=== PATIENT | female | born 1980 ===

== ENCOUNTER 2018-10-04 08:00 | Emergency (ER) | payer BC ==
[2018-10-04 08:16] VITALS: BP 97/68
--- NOTE | 2018-10-04 08:26 | ED ---
Lower Extremity - HPI Summary HPI Summary: Pt presents w/ Lt ankle pain since falling last night. Was running across the driveway in shoes with a high sole when she twisted her ankle and fell ( eversion injury). Swelled immediately - worse over area of distal anterior talofibular ligament. Bruising today and tender to touch. Tingling in toes but has sensation and warmth. Has been avoiding weight bearing d/t pain. Has not tried medication or ice but elevated after injury last night. H/o previous ankle fracture on this side - no complications or residual issues. - History of Current Complaint Chief Complaint: UCLowerExtremity Stated Complaint: ANKLE INJURY Time Seen by Provider: 10/04/18 08:12 Hx Obtained From: Patient, Family/Environmental Monitoring Technician - Hx Last Menstrual Period: Nursing Pain Intensity: 4 - Allergies/Home Medications Allergies/Adverse Reactions: Allergies Allergy/AdvReac Type Severity Reaction Status Date / Time latex Allergy Unknown Verified 10/04/18 08:13 Reaction Details metronidazole [From Flagyl] Allergy Unknown Verified 10/04/18 08:13 Reaction Details Sulfa (Sulfonamide Allergy Unknown Verified 10/04/18 08:13 Antibiotics) Reaction Details Home Medications: Home Medications NK [No Home Medications Reported] 10/04/18 [History Confirmed 10/04/18] PMH/Surg Hx/FS Hx/Imm Hx Previously Healthy: Yes Endocrine/Hematology History: Denies: Hx Anticoagulant Therapy, Hx Unexplained Bleeding Musculoskeletal History: Reports: Hx of Fracture(s) - Left ankle fracture Infectious Disease History: No Infectious Disease History: Denies: Traveled Outside the [place] in Last 30 Days - Social History Lives: With Family Alcohol Use: None Hx Substance Use: No Substance Use Type: Reports: None Hx Tobacco Use: No Smoking Status (MU): Never Smoked Tobacco Review of Systems Positive: no symptoms reported Positive: Arthralgia, Decreased ROM, Edema Positive: Bruising Positive: Paresthesia Psychological: Normal All Other Systems Reviewed And Are Negative: Yes Physical Exam Triage Information Reviewed: Yes Vital Signs On Initial Exam: Initial Vitals Temp Pulse Resp BP Pulse Ox 98.6 F 92 18 97/68 100 10/04/18 08:13 10/04/18 08:13 10/04/18 08:13 10/04/18 08:13 10/04/18 08:13 Vital Signs Reviewed: Yes Appearance: Positive: Well-Appearing, No Pain Distress - at rest, Well-Nourished , Pain Distress - pain w movement of ankle, palpation Skin: Positive: Warm, Skin Color Reflects Adequate Perfusion, Dry - ecchymosis over Lt lateral ankle - no skin breakdown Head/Face: Positive: Normal Head/Face Inspection Eyes: Positive: EOMI ENT: Positive: Hearing grossly normal Respiratory/Lung Sounds: Positive: Breath Sounds Present Cardiovascular: Positive: Pulses are Symmetrical in both Upper and Lower Extremities Musculoskeletal: Positive: Strength/ROM Intact - knee however lateral knee is TTP - possible fibular head dislocation but no gross abnormality appreciated, Limited @ - pt is reluctant to move ankle - moves toes but has pain in ankle, Pain @ - Lt lateral ankle - edema and ecchymosis - TTP over anterior talofibular ligament region - no sugar laxity however exam limited given nature of injury - mild TTP over base of 5th MT Neurological: Positive: Normal, Sensory/Motor Intact, Alert, Oriented to Person Place, Time, CN Intact II-III Psychiatric: Positive: Normal Diagnostics - Vital Signs Vital Signs Temp Pulse Resp BP Pulse Ox 10/04/18 08:13 98.6 F 92 18 97/68 100 - Laboratory Lab Statement: Any lab studies that have been ordered have been reviewed, and results considered in the medical decision making process. Lower Extremity Course/Dx - Course Course Of Treatment: XR: 1) bone density decreased throughout. 2) small minimally displaced avulsion fx of from the caudal margin of the lateral malleolous likely at the origin of the anterior talofibular ligament. 3) no additional fx pr articular malalignment at the ankle or foot. 4) Os tibiale externum accessory ossicle noted. 5) Soft tissue swelling most prominent over the lateral malleolus. RICE - CAM boot, NSAID or topical analgesic if preferred , crutches and NWB until cleared by ortho - danger s/sx reviewed. Also explained there may be a dislocated fibular head - they will wait for acutity to reduce then re-evaluate before treating. Offered XR of knee but declined. - Diagnoses Provider Diagnoses: Avulsion fracture of lateral malleolus of left fibula Discharge - Sign-Out/Discharge Documenting (check all that apply): Patient Departure All imaging exams completed and their final reports reviewed: Yes - Discharge Plan Condition: Stable Disposition: HOME Patient Education Materials: Crutch Instructions (ED), Avulsion Fracture (ED), Walking Boot (ED) Referrals: Isidro Egan MD [Medical Doctor] - Additional Instructions: Rest, ice, elevate You may take ibuprofen or aleve (or any alternative anti-inflammatory) as well as try topical analgesics (ie. biofreeze, arnica, etc) Wear CAM boot and use crutches to avoid weight bearing until cleared by orthopedics - call Saturday to schedule an appointment. NOTE: you may also have a dislocated fibular head - if pain persists, discuss with ortho for further evaluation. - Billing Disposition and Condition Condition: STABLE Disposition: Home
== END 2018-10-04 10:00 | disposition home or self-care (01) ==
LOC: UCEAST 08:00
DX: S82.62XA Displaced fracture of lateral malleolus of left fibula, initial encounter for closed fracture (principal); W01.0XXA Fall on same level from slipping, tripping and stumbling without subsequent striking against object, initial encounter; Y92.014 Private driveway to single-family (private) house as the place of occurrence of the external cause; Z88.2 Allergy status to sulfonamides; Z91.040 Latex allergy status
CPT/HCPCS: 99212; G0463